=== PATIENT | male | born 1960 | race Caucasian/White ===

== ENCOUNTER 2019-10-21 08:47 | Emergency (ER) | payer BC, SELFPAY ==
[2019-10-21 08:57] VITALS: BP 129/78; PULSE 75; RESP 16; TEMP 37; O2SAT 97; BMI 31.4
--- NOTE | 2019-10-21 09:03 | ED_ITS ---
Entered by Devyn Bach, acting as scribe for Oct 21, 2019 08:47 HPI - Extremity Problem General: Chief complaint: Extremity Problem,Nontraumatic Stated complaint: left heel pain Time Seen by Provider: 10/21/19 09:03 History of Present Illness: HPI Narrative: 59 yo male presents with left heel pain for 1 week. Pt denies any injury to his foot or heel. No injury that he can recall. He has had peripheral vascular disease in the past he still has some claudication his leg looks better since he had the stent placed. He denies any trauma to the heel. It is moderately swollen tender to the touch and tender when he walks on it. MD Complaint: extremity pain Onset (ago): week(s) (1) Pain Consistency: constant Location: left and lower extremity Quality: stabbing Relieving factors: nothing Exacerbating factors: other (walking on it) Associated symptoms: Deny chest pain, fever(s) or rash Review of Systems Const: Denies: fever, chills, body aches, fatigue, malaise or night sweats Eyes: Denies: change in vision or blurry vision ENMT: Denies: throat pain, oral sores/lesions, dental pain, nasal discharge or nasal congestion Card: Denies: chest pain, palpitations, irregular heart rhythm, edema, syncope, shortness of breath on exertion, shortness of breath when lying down or leg pain with exertion Resp: Denies: shortness of breath, productive cough, non-productive cough or wheezing GI: Denies: abdominal pain, nausea, vomiting, vomiting blood, coffee grounds in vomit, difficulty swallowing, heartburn/indigestion, diarrhea, constipation, cramping, blood in stool or black tarry stool : Denies: flank pain, difficulty urinating, painful urination, urinary frequency, urinary urgency, urinary incontinence or blood in urine Musc: Denies: neck pain, back pain, extremity pain, extremity swelling, joint pain or joint swelling Skin/Breast: Denies: rash, itching or redness Neuro: Denies: headache, numbness in extremities, weakness in extremities, changes in sensation, lack of coordination, difficulty walking, frequent falls, dizziness, vertigo or confusion Psych: Denies: anxiety, depression, loss of interest, visual hallucinations, auditory hallucinations, suicidal ideation or homicidal ideation Endo: Denies: excessive urination, excessive thirst, tired all the time or cold intolerance Bret/Lymph: Denies: easy bruising, easy bleeding, petechiae, enlarged lymph nodes or tender lymph nodes PFSH ED PFSH: Medical History (Updated 10/21/19 @ 09:59 by Donn Cross DO) ASHD (arteriosclerotic heart disease) Cardiomyopathy COPD (chronic obstructive pulmonary disease) Diabetes Dyslipidemia HTN (hypertension) Myocardial infarction Surgical History (Updated 10/21/19 @ 09:06 by Devyn Bach) S/P angioplasty with stent S/P appendectomy S/P carpal tunnel release Family History (Updated 08/31/19 @ 10:06 by Arlene Eaton RN) Grandmother CAD (coronary artery disease) MATERNAL Social History Smoking and tobacco status: current every day smoker Physical Exam Const: COMMON NORMALS: average body habitus, oriented x3 and alert GENERAL APPEARANCE: cooperative, comfortable, well kempt and well developed NUTRITIONAL APPEARANCE: obese ORIENTATION/CONSCIOUSNESS: Yes awake, Yes oriented to person and Yes oriented to place Eye: COMMON NORMALS: PERRL, EOMs intact bilaterally, conjunctivae normal and no scleral icterus CONJUNCTIVA: Yes conjunctivae normal PUPIL: Yes PERRL Neck/C-Spine: COMMON NORMALS: full ROM, no lymphadenopathy, supple, no meningeal signs and thyroid normal THYROID: thyroid normal and asymmetrical Lymph: LYMPHATIC: no lymphadenopathy noted Resp: COMMON NORMALS: normal respiratory effort, no retractions, no use of accessory muscles and clear to auscultation bilaterally AUSCULTATION: clear t o auscultation bilaterally Cardio: COMMON NORMALS: regular rate and regular rhythm RATE: regular rate RHYTHM: regular rhythm HEART SOUNDS: no murmurs Back/Pelvis: LUMBAR SPINE/LOWER BACK: Yes normal to inspection Extremity: COMMON NORMALS: no clubbing, cyanosis or edema, no calf tenderness and no pedal edema OTHER: Very weak dorsalis pedis posterior tibialis pulses. Moderate swelling at the calcaneus with pain with compression laterally. There is no pain in metatarsal tarsal joint. There is decreased capillary refill negative Homans sign. Neuro: COMMON NORMALS: oriented x3 SENSORIUM/ORIENTATION: Yes alert, Yes oriented to person and Yes oriented to place MENINGEAL SIGNS: Yes no meningeal signs Psych: APPEARANCE: Yes well kempt Skin: COMMON NORMALS: no rashes or lesions noted and skin turgor normal GENERAL SKIN EXAM: no rashes or lesions noted and turgor normal Course Vital Signs: Vital signs: Vital Signs Temperature 98.6 F 10/21/19 08:57 Pulse Rate 75 10/21/19 08:57 Respiratory Rate 16 10/21/19 10:08 Blood Pressure 129/78 10/21/19 08:57 Pulse Oximetry 96 10/21/19 10:08 MDM - Extremity (Nontraumatic) MDM Narrative: Medical decision making narrative: Venous duplex does show some diffuse disease but no critical disease. Labs are fairly unremarkable treated with an anti-inflammatory if this persists he may need to have a further evaluation including possibly more imaging of that foot and heel. This does not seem to affect any of the joints that do not believe it is gout. Lab Data: Labs: Lab Results 10/21/19 10/21/19 Range/Units 09:15 09:15 WBC 10.8 H (4.0-10.0) 10^3/ uL RBC 4.95 (4.1-5.3) 10^6/u L Hgb 14.7 (11.7-16.6) g/dL Hct 46.0 (42.0-52.0) % MCV 92.9 (80-94) fL MCH 29.7 (28.0-34.0) pg MCHC 32.0 (30.0-36.0) g/dL RDW 12.4 (12.1-15.1) % Plt Count 324 (130-400) 10^3/c mm MPV 10.0 (7.4-10.4) fL Neut % (Auto) 65.3 % Lymph % (Auto) 16.8 % [place] % (Auto) 12.3 % Eos % (Auto) 4.2 % Baso % (Auto) 0.9 % Neut # (Auto) 7.0 (1.8-7.7) 10^3/u L Lymph # (Auto) 1.8 (0.8-4.8) 10^3/u L [place] # (Auto) 1.3 H (0.2-0.9) 10^3/u L Eos # (Auto) 0.5 (0.0-0.8) 10^3/u L Baso # (Auto) 0.1 (0.0-0.1) 10^3/u L Nucleated RBC % (a uto) 0 % Nucleated RBCs # 0.0 /100WBC Sodium 134 L (136-145) mmol/L Potassium 4.7 (3.5-5.1) mmol/L Chloride 98 (98-107) mmol/L Carbon Dioxide 26 (22-29) mmol/L Anion Gap 14.7 (5-19) BUN 17 (6-20) mg/dL Creatinine 0.9 (0.7-1.2) mg/dL GFR Calculation 87.0 L (90-130) mL/min Glucose 294 H (65-115) mg/dL Calculated Osmolal ity 285 (285-295) mOsm/k g Uric Acid 4.8 (3.4-7.0) mg/dL Calcium 9.6 (8.5-10.5) mg/dL Total Bilirubin 0.3 (0.15-1.2) mg/dL AST 15 (0-40) U/L ALT 15 (0-41) U/L Alkaline Phosphata se 110 (40-130) IU/L Total Protein 7.4 (6.6-8.7) g/dL Albumin 4.2 (3.5-5.2) g/dL Globulin 3.2 (1.3-4.6) g/dL Discharge Plan Discharge Patient Disposition: Home, Self-Care Clinical Impression: Inflammatory pain of left heel Condition: Stable Prescriptions: New diclofenac sodium 75 mg tablet,delayed release (DR/EC) 75 mg PO Q12H PRN (Reason: pain) Qty: 20 RF: 0 No Action carvedilol [Coreg] 12.5 mg tablet 12.5 mg PO BID RF: 0 vitamin B complex [B Complex-Vitamin B12] Tablet 1 tab PO DAILY RF: 0 Trulicity 1.5 mg/0.5 mL pen injector SUBCUT .WEEKLY RF: 0 aspirin 325 mg tablet 325 mg PO DAILY RF: 0 glipizide 10 mg tablet 10 mg PO DAILY RF: 0 lisinopril 10 mg tablet 10 mg PO DAILY RF: 0 metformin 1,000 mg tablet 1,000 mg PO BID RF: 0 atorvastatin 40 mg tablet 40 mg PO DAILY RF: 0 clopidogrel 75 mg tablet 75 mg PO DAILY RF: 0 Discharge Orders: Discharge Order (Routine); Ordered 10/21/19 Ordered By: Donn Cross Referrals: Javier Ivey MD [Primary Care Provider] - Discharge Diet: Usual diet Discharge Activity: Increase activity as tolerated Activity Restrictions/Additional Instructions: Follow-up with Dr. Ivey if not improving Discharge Date/Time: 10/21/19 10:10 Coding Level of Care Code ED Director Business for Chg Fwd Exam Comprehensive The documentation recorded by the Isreal ely Kialy, accurately reflects the service I personally performed and the decisions made by America coley Curtis L, Oct 21, 2019 08:47
[2019-10-21 09:07] VITALS: RESP 16
--- NOTE | 2019-10-21 09:07 | XRR_ITS ---
PROCEDURE INFORMATION: Exam: XR Left Calcaneus Exam date and time: 10/21/2019 9:10 AM Age: 59 years old Clinical indication: Pain; Heel; Left TECHNIQUE: Imaging protocol: XR of the Left calcaneus. Views: 2 or more views. COMPARISON: No relevant prior studies available. FINDINGS: Bones/joints: There is a moderate size calcaneal heel spur at the plantar insertion. There is no evidence of acute displaced fracture. Soft tissues: Unremarkable for technique. XR/XR calcaneus LT min 2V [id number] IMPRESSION: 1. No radiographic evidence of an acute osseous abnormality. 2. Moderate size plantar heel spur.
--- NOTE | 2019-10-21 09:07 | USR_ITS ---
PROCEDURE INFORMATION: Exam: US Duplex Left Lower extremity arteries or arterial bypass grafts Exam date and time: 10/21/2019 9:28 AM Age: 59 years old Clinical indication: Pain; Leg, lower; Left; Additional info: Limb pain, HX of pa TECHNIQUE: Imaging protocol: Left Real-time duplex scan of the arteries or arterial bypass grafts of the left lower extremity with 2-D tellez scale, color Doppler flow and spectral waveform analysis. COMPARISON: CR (LOW EXM, ) 10/21/2019 9:21 AM FINDINGS: Left common femoral artery: No occlusion or significant stenosis. Biphasic/monophasic flow within the left mid femoral artery. Otherwise, normal waveform. Left superficial femoral artery: No occlusion or significant stenosis. Normal waveform. Left popliteal artery: No occlusion or significant stenosis. Biphasic/monophasic flow. Left calf/foot arteries: No occlusion or significant stenosis in the visualized arteries. Biphasic/monophasic flow within the posterior tibial and dorsalis pedis arteries. Otherwise, normal waveform. Dorsalis pedis artery is patent. US/CV arterial duplex [facility] [id number] IMPRESSION: No acute findings.
[2019-10-21 09:23] LABS: Basophils # 0.1 10^3/uL (0.0-0.1); Basophils % 0.9 %; Eosinophils # 0.5 10^3/uL (0.0-0.8); Eosinophils % 4.2 %; Hemoglobin 14.7 g/dL (11.7-16.6); Lymphocytes # 1.8 10^3/uL (0.8-4.8); Lymphocytes % 16.8 %; Mean Corpuscular Hemoglobin 29.7 pg (28.0-34.0); Mean Corpuscular Volume 92.9 fL (80-94); Monocytes # 1.3 10^3/uL (0.2-0.9); Monocytes % 12.3 %; Neutrophils % 65.3 %; Nucleated Red Blood Cells % 0 %; Platelet Count 324 10^3/cmm (130-400); Red Blood Count 4.95 10^6/uL (4.1-5.3); Red Cell Distribution Width 12.4 % (12.1-15.1); White Blood Count 10.8 10^3/uL (4.0-10.0)
[2019-10-21 09:41] LABS: Alanine Aminotransferase 15 U/L (0-41); Albumin Level 4.2 g/dL (3.5-5.2); Alkaline Phosphatase 110 IU/L (40-130); Anion Gap 14.7 (5-19); Aspartate Amino Transferase 15 U/L (0-40); Blood Urea Nitrogen 17 mg/dL (6-20); Calcium 9.6 mg/dL (8.5-10.5); Carbon Dioxide 26 mmol/L (22-29); Chloride 98 mmol/L (98-107); Globulin 3.2 g/dL (1.3-4.6); Glucose 294 mg/dL (65-115); Osmolality Calculated 285 mOsm/kg (285-295); Potassium 4.7 mmol/L (3.5-5.1); Sodium 134 mmol/L (136-145); Total Bilirubin 0.3 mg/dL (0.15-1.2); Total Protein 7.4 g/dL (6.6-8.7); Uric Acid 4.8 mg/dL (3.4-7.0)
[2019-10-21 10:08] VITALS: RESP 16; O2SAT 96
[2019-10-21 10:30] LABS: C Reactive Protein 16.2 mg/L (0.0-4.9)
== END 2019-10-21 10:10 | disposition home or self-care (01) ==
PROVIDERS: Emergency Provider Family Medicine; Family Provider Family Medicine; PCP Family Medicine
DX: M79.672 Pain in left foot (principal); I25.10 Atherosclerotic heart disease of native coronary artery without angina pectoris; J44.9 Chronic obstructive pulmonary disease, unspecified; E11.9 Type 2 diabetes mellitus without complications; E78.5 Hyperlipidemia, unspecified; I10 Essential (primary) hypertension; I25.2 Old myocardial infarction; F17.200 Nicotine dependence, unspecified, uncomplicated; E66.9 Obesity, unspecified; Z68.31 Body mass index [BMI] 31.0-31.9, adult; Z79.84 Long term (current) use of oral hypoglycemic drugs; Z79.82 Long term (current) use of aspirin; Z95.5 Presence of coronary angioplasty implant and graft
CPT/HCPCS: 12345; 36415; 73650; 80053; 84550; 85025; 86140; 93926; 99281; 99283

== ENCOUNTER → 2019-11-07 12:50 | Outpatient (BNVA) | payer BC, SELFPAY | PROVIDERS: Family Provider Family Medicine; PCP Family Medicine; Referring Provider Nurse Practitioner; Visit Provider Podiatrist Foot & Ankle Surgery | DX: L97.421 Non-pressure chronic ulcer of left heel and midfoot limited to breakdown of skin (principal); L97.521 Non-pressure chronic ulcer of other part of left foot limited to breakdown of skin; E11.9 Type 2 diabetes mellitus without complications; R23.8 Other skin changes; I73.9 Peripheral vascular disease, unspecified | CPT/HCPCS: 87070; 87075; 87077; 87186; 87205 ==

== ENCOUNTER → 2019-11-30 10:24 | Outpatient (BNVA) | payer BC, SELFPAY | PROVIDERS: Family Provider Family Medicine; PCP Family Medicine; Visit Provider Podiatrist Foot & Ankle Surgery | DX: L97.422 Non-pressure chronic ulcer of left heel and midfoot with fat layer exposed (principal); M77.32 Calcaneal spur, left foot | CPT/HCPCS: 73650 ==

== ENCOUNTER → 2020-10-10 08:47 | Outpatient (BNVA) | payer BC, SELFPAY | PROVIDERS: Family Provider Family Medicine; PCP Family Medicine; Referring Provider Family Medicine; Visit Provider Internal Medicine | DX: E11.49 Type 2 diabetes mellitus with other diabetic neurological complication (principal); E11.59 Type 2 diabetes mellitus with other circulatory complications; I25.10 Atherosclerotic heart disease of native coronary artery without angina pectoris; E11.65 Type 2 diabetes mellitus with hyperglycemia; I73.9 Peripheral vascular disease, unspecified; L97.509 Non-pressure chronic ulcer of other part of unspecified foot with unspecified severity | CPT/HCPCS: 99204 ==

== ENCOUNTER → 2020-10-24 08:50 | Outpatient (BNVA) | payer BC, SELFPAY | PROVIDERS: Family Provider Family Medicine; PCP Family Medicine; Visit Provider Internal Medicine | DX: E11.49 Type 2 diabetes mellitus with other diabetic neurological complication (principal); E11.59 Type 2 diabetes mellitus with other circulatory complications; I25.10 Atherosclerotic heart disease of native coronary artery without angina pectoris; E11.65 Type 2 diabetes mellitus with hyperglycemia; I73.9 Peripheral vascular disease, unspecified; L97.509 Non-pressure chronic ulcer of other part of unspecified foot with unspecified severity | CPT/HCPCS: 99214 ==

== ENCOUNTER 2021-10-23 09:49 | Outpatient (CLI) | payer BC, SELFPAY ==
--- NOTE | 2021-10-23 10:14 | XR_ITS ---
WS: [id number] Exam: XR shoulder LT min 2V* [id number] Date/Time of Exam: 10/23/2021 10:18 AM Reason For Exam: L SHOULDER PAIN No acute fracture or dislocation. Articular relationships are intact. Soft tissue calcification along the humeral head suggesting calcific bursitis and/or tendinitis. XR/XR shoulder LT min 2V* [id number] IMPRESSION: 1. No fracture or dislocation. 2. Soft tissue findings suggesting calcific tendinitis and/or bursitis.
== END 2021-10-23 09:50 | disposition home or self-care (01) ==
PROVIDERS: PCP Family Medicine; Visit Provider Family Medicine
DX: M25.512 Pain in left shoulder (principal)
CPT/HCPCS: 73030

== ENCOUNTER → 2022-11-11 12:18 | Outpatient (BNVA) | payer OTHER, SELFPAY | PROVIDERS: PCP Family Medicine; Visit Provider Family Medicine | DX: Z51.81 Encounter for therapeutic drug level monitoring (principal); E11.9 Type 2 diabetes mellitus without complications; Z13.220 Encounter for screening for lipoid disorders; E53.8 Deficiency of other specified B group vitamins; Z12.5 Encounter for screening for malignant neoplasm of prostate; R35.0 Frequency of micturition | CPT/HCPCS: 80053; 80061; 82607; 83036; 84153; 85025 ==

== ENCOUNTER → 2023-05-27 10:33 | Outpatient (BNVA) | payer OTHER, SELFPAY | PROVIDERS: PCP Family Medicine; Visit Provider Family Medicine | DX: Z51.81 Encounter for therapeutic drug level monitoring (principal); E11.9 Type 2 diabetes mellitus without complications; R35.0 Frequency of micturition; Z13.220 Encounter for screening for lipoid disorders; E11.49 Type 2 diabetes mellitus with other diabetic neurological complication; E11.65 Type 2 diabetes mellitus with hyperglycemia; I10 Essential (primary) hypertension | CPT/HCPCS: 80053; 80061; 83036; 84153; 85025 ==

== ENCOUNTER → 2024-06-14 09:33 | Outpatient (BNVA) | payer OTHER, MEDICAID, SELFPAY | PROVIDERS: PCP Family Medicine; Visit Provider Family Medicine | DX: Z13.220 Encounter for screening for lipoid disorders (principal); E55.9 Vitamin D deficiency, unspecified; Z51.81 Encounter for therapeutic drug level monitoring; E11.9 Type 2 diabetes mellitus without complications; R53.81 Other malaise; R53.83 Other fatigue; E53.8 Deficiency of other specified B group vitamins | CPT/HCPCS: 80053; 80061; 82306; 82607; 83036; 84443; 85025 ==